=== PATIENT | male | born 1970 | race Caucasian/White ===

== ENCOUNTER 2020-03-17 20:00 | Emergency (ER) | payer OTHER, SELFPAY ==
--- NOTE | ~2020-03-17 | CT_ITS ---
EXAMINATION: CT abdomen pelvis w con DATE: 03/18/2020 01:11 INDICATION: Left upper quadrant pain radiating to the left flank. TECHNIQUE: Computed tomography (CT) of the abdomen and pelvis was performed with 100 cc Omnipaque 350 intravenous contrast. The dose-length product was 958.78 mGy-cm. Automated exposure control and iter ative reconstruction technique were employed. COMPARISON: CT dated 10/28/2013. FINDINGS: Heart size normal. No significant pleural or pericardial effusion. Bibasilar dependent atel ectasis. Nonobstructing bilateral renal stones. No ureteral stones or significant hydronephrosis. No perinephric edema. Fatty infiltration of the liver. The spleen, pancreas, adrenal glands are unremarkable. Gallbladder i s contracted. Nonobstructive bowel gas pattern. Normal appendix. No significant vascular abnormality. No lymphadenopathy. No acute osseous abnormality. IMPRESSION: 1. Nonobstructing bilateral nephrolithiasis. Reviewed, dictated and finalized at location B.
[2020-03-17 20:13] VITALS: BP 126/87; PULSE 102; RESP 17; TEMP 36.4; O2SAT 96
--- NOTE | 2020-03-17 20:20 | ECG_ITS ---
Measurements Intervals [place] Rate: 95 P: 52 RI: 170 QRS: 3 QRSD: 109 T: 31 QT: 336 QTc: 424 Interpretive Statements SINUS RHYTHM DELAYED PRECORDIAL R/S TRANSITION BASELINE ARTIFACT- I, III, AVR, AVF BORDERLINE ECG Electronically Signed On 03-18-2020 6:59:31 CDT by Bill Foote D.O.
[2020-03-17 20:27] LABS: Basophils Absolute Auto 0.1 K/mm3 (0.0-0.1); Basophils Percent Auto 0.8 % (0.2-1.2); Eosinophils Absolute Auto 0.3 K/mm3 (0-0.3); Eosinophils Percent Auto 4.6 % (0-4.4); Hemoglobin 16.3 g/dL (14.0-18.0); Immature Granulocyte Absolute 0.02 K/mm3 (0.00-0.031); Immature Granulocyte Percent A 0.3 % (0-0.5); Lymphocytes Absolute Auto 2.22 K/mm3 (0.9-3.2); Mean Corpuscular HGB Conc 35.4 g/dl (32-36); Mean Corpuscular Volume 84.6 fl (80-100); Mean Platelet Volume 9.3 fl (7.4-10.4); Monocytes Absolute Auto 0.5 K/mm3 (0.1-0.6); Monocytes Percent Auto 6.4 % (2.6-8.5); Neutrophils Absolute Auto 4.1 K/mm3 (1.3-6.7); Neutrophils Percent Auto 56.9 % (45.5-73.1); Platelet Count Result 258 k/mm3 (150-375); Red Blood Count 5.44 M/mm3 (4.6-6.20); Red Cell Distribution Width 12.2 % (11.5-14.5); White Blood Count 7.2 K/mm3 (4.5-10.0)
[2020-03-17 20:40] LABS: Alanine Aminotransferase 67 U/L (4-50); Albumin Level 4.7 g/dL (3.5-5.1); Alkaline Phosphatase 58 U/L (38-126); Anion Gap 9 mmol/L (8-16); Aspartate Amino Transferase 37 U/L (17-59); Blood Urea Nitrogen 11 mg/dL (9-20); Calcium 9.5 mg/dL (8.4-10.2); Carbon Dioxide 28 mmol/L (22-30); Chloride 100 mmol/L (98-107); Estimated CRCL calculation 79 ml/min; Estimated Glomerular Filt Rate > 60; Glucose 105 mg/dL (75-110); Lipase 295 U/L (23-300); Potassium 3.9 mmol/L (3.4-5.0); Sodium 137 mmol/L (137-145)
[2020-03-17 20:51] LABS: Troponin I < 0.012 ng/mL (0.000-0.034)
[2020-03-17 22:04] LABS: Add Urine Microscopic? YES; Appearance Urine Clear (Clear); Bilirubin Urine Negative (Negative); Blood Urine Negative (Negative); Color Urine Yellow (Yellow); Glucose Urine UA 3+ mg/dL (Negative); Ketones Urine Negative (Negative); Leukocyte Esterase Ur Negative LEU/UL (Negative); Mucus Urine Rare /lpf; Nitrate Urine Negative (Negative); Protein Urine Negative (Negative); RBC Urine 0-2 /hpf (0-2); Specific Grav Ur 1.026 (1.001-1.035); WBC Urine 0-3 /hpf
--- NOTE | 2020-03-17 23:21 | ED.ABDPAIN ---
HPI - Abdominal Pain General Chief Complaint: Abdominal Pain Stated Complaint: L flank pain Time Seen by Provider: 03/17/20 23:09 History of Present Illness HPI narrative: LUQ pain for the past few hours. Moderate intensity. No radiation. Associated with nausea. He reports having abdominal issues recently. He also reports mild fatigue. He had routine labs done showing elevated liver enzymes and was supposed to have an ultrasound soon. Related Data Allergies Allergy/AdvReac Type Severity Reaction Status Date / Time No Known Allergies Allergy Unknown Verified 02/20/20 12:37 Review of Systems Review of Systems: All systems reviewed & are unremarkable except as noted in HPI and below Constitutional: Constitutional: Denies fever(s) ENT: Denies sore throat Cardiovascular: Cardiovascular: Denies chest pain Respiratory: Respiratory: Denies dyspnea Gastrointestinal: Gastrointestinal: Reports abdominal pain, Denies constipation, Denies diarrhea and Reports nausea Genitourinary: Genitourinary: Denies hematuria, Denies dysuria and Denies urinary frequency Musculoskeletal: Musculoskeletal: Denies back pain Neurologic: Denies weakness PMFSH Family History Family History Father Carcinoma of colon Grandparent Carcinoma of colon Family history of malignant neoplasm of skin Diabetes mellitus Other Family history of cardiovascular disease Family history of heart disease in male family member before age 55 Social History Social History Smoking status: Former smoker Second hand tobacco smoke exposure: No Alcohol intake: current Gender identity (if verbalized by the patient): Male Exam Const: General: healthy appearing, no acute distress and alert Nutritional Appearance: well nourished Orientation/consciousness: patient oriented x3 HENMT: Head: normal to inspection Neck: Neck: normal visual inspection and no lymphadenopathy Chest: Chest palpation & inspection: no tenderness Resp: Effort & Inspection: normal respiratory effort Auscultation: clear to auscultation bilaterally, no rales, no rhonchi and no wheezes Cardio: Jugular venous distension: no JVD Rate: regular rate Rhythm: regular rhythm Heart sounds: no murmurs GI: Inspection: non-distended GI Palp: Yes Soft to palpation, Yes Tenderness to palpation present (GI) (LUQ), No Guarding due to palpation present (GI) and No Rebound tenderness present Auscultation: normal bowel sounds Skin: General skin exam: normal color Neuro: General: patient oriented x3 and moves all extremities Speech: normal speech Extrem: General: no edema Psych: Appearance: well kempt Affect: normal affect Course Vital Signs Vital signs: Vital Signs Temperature 36.4 C L 03/17/20 20:13 Pulse Rate 102 H 03/17/20 20:13 Respiratory Rate 17 03/17/20 20:13 Blood Pressure 126/87 03/17/20 20:13 Pulse Oximetry 96 03/17/20 20:13 Temperature 36.9 C 03/18/20 03:17 Pulse Rate 71 03/18/20 03:17 Respiratory Rate 16 03/18/20 03:17 Blood Pressure 128/73 03/18/20 03:17 Pulse Oximetry 99 03/18/20 03:17 MDM - Abdominal Pain MDM Narrative Medical decision making narrative: Given h/o of fatigue and elevated liver enzymes mono w/ enlarged spleen was high on my differential. Stokes screen negative. Spleen normal. CT shows signs of UTI or possible recently passed stone. UA does not indicate infection. Not a typical presentation for idney stone, but possible. Differential Diagnosis Differential diagnosis: Likely constipation, small bowel obstruction and other Lab Data Result diagrams: 03/17/20 20:22 03/17/20 20:22 Labs: Lab Results 03/17/20 03/17/20 03/17/20 Range/Units 20:20 20:22 20:22 WBC 7.2 (4.5-10.0) K/mm3 RBC 5.44 (4.6-6.20) M/mm3 Hgb 16.3 (14.0-18.0) g/dL Hct 46.0 (42.0
[2020-03-18 00:03] VITALS: BP 121/73; PULSE 68; RESP 18; O2SAT 99
[2020-03-18 00:24] LABS: Monoscreen Negative (Negative); Negative Monotest Control Negative (Negative); Positive Monotest Control Positive (Positive)
[2020-03-18 02:10] VITALS: BP 121/78; PULSE 74; RESP 16; O2SAT 99
[2020-03-18 03:17] VITALS: BP 128/73; PULSE 71; RESP 16; TEMP 36.9; O2SAT 99
== END 2020-03-18 03:17 | disposition home or self-care (01) ==
PROVIDERS: Emergency Provider Emergency Medicine; PCP Family Medicine
DX: R10.12 Left upper quadrant pain (principal); Z87.891 Personal history of nicotine dependence; R94.31 Abnormal electrocardiogram [ECG] [EKG]; N20.0 Calculus of kidney
CPT/HCPCS: 36415; 74177; 80053; 81001; 83690; 84484; 85025; 86308; 93005; 99284; Q9967

== ENCOUNTER 2020-03-19 09:21 | Outpatient (CLI) | payer OTHER, SELFPAY ==
--- NOTE | ~2020-03-19 | US_ITS ---
US abdomen complete EXAMINATION: US Abdomen Complete INDICATION: Abdominal pain. Abnormal liver function tests. PROCEDURE: Realtime High Resolution abdomen ultrasound. COMPARISON: No prior studies for comparison FINDINGS: Gallbladder within normal limits. No gallstones, pericholecystic fluid, gallbladder wall t hickening or biliary dilatation. Common bile duct measures 3 mm. Liver echotexture within normal limits without focal mass. Pancreas within normal limits. Pancreati c tail is obscured by bowel gas. Spleen is enlarged measuring 14 cm. Renal echotexture is within nor mal limits bilaterally without hydronephrosis, contour deforming mass or renal stone. Right kidney me asures 10.1 cm. Left kidney measures 12.2 cm. Visualized aspects of the aorta and IVC are within normal limits. Portal vein is patent. No sonograph ic Gabriel's sign indicated by the technologist. IMPRESSION: 1: Splenomegaly. Reviewed, dictated and finalized at location B. IMPRESSION: 1: Splenomegaly.
== END 2020-03-19 09:22 | disposition home or self-care (01) ==
PROVIDERS: PCP Family Medicine; Visit Provider Physician Assistant Medical
DX: R79.89 Other specified abnormal findings of blood chemistry (principal); R16.1 Splenomegaly, not elsewhere classified
CPT/HCPCS: 76700

== ENCOUNTER 2020-04-18 07:29 | Outpatient (CLI) | payer OTHER, SELFPAY ==
--- NOTE | ~2020-04-18 | NM_ITS ---
EXAMINATION: NM hepatobiliary w pharm DATE: 04/18/2020 09:35 INDICATION: Right upper quadrant abdominal pain COMPARISON: None. TECHNIQUE: 5 mCi Tc-99m mebrofenin (Choletec) was administered intravenously. Scintigraphic images o f the abdomen were obtained for one hour. 2 mcg sincalide (Kinevac) was administered by slow intraven ous infusion, and imaging was continued for 30 minutes. Gallbladder ejection fraction was calculated by the technologist. FINDINGS: There is normal clearance of radiotracer from the blood pool. There is homogeneous tracer uptake by t he liver. Activity progresses to the gallbladder and bowel. The gallbladder ejection fraction (GBEF) is 32% (normal 10-90%, but most patient with gallbladder dysfunction have GBEF < 35% which does over lap with the normal range). IMPRESSION: 1. Gallbladder ejection fraction is at the lower limits of normal. This could be normal but is also within the range of overlap with gallbladder dysfunction or chronic cholecystitis in the appropriate clinical setting. Reviewed, dictated and finalized at location B.
== END 2020-04-18 07:30 | disposition home or self-care (01) ==
PROVIDERS: PCP Family Medicine; Visit Provider Family Medicine
DX: R10.11 Right upper quadrant pain (principal)
CPT/HCPCS: 78227; A9537; J2805

== ENCOUNTER 2020-05-03 11:40 | Outpatient (CLI) | payer OTHER, SELFPAY ==
[2020-05-07 07:39] LABS: H pylori Ag Stool Not Detected (Not Detected)
== END 2020-05-03 11:41 | disposition home or self-care (01) ==
LOC: ANHLAB 11:42
PROVIDERS: PCP Family Medicine; Visit Provider Surgery
DX: R10.11 Right upper quadrant pain (principal)
CPT/HCPCS: 87338

== ENCOUNTER 2020-05-21 08:54 | Outpatient (CLI) | payer OTHER, SELFPAY ==
[2020-05-21 10:02] LABS: Alanine Aminotransferase 39 U/L (4-50); Albumin Level 4.3 g/dL (3.5-5.1); Alkaline Phosphatase 66 U/L (38-126); Amylase 74 U/L (30-110); Anion Gap 9 mmol/L (8-16); Aspartate Amino Transferase 26 U/L (17-59); Bilirubin,Total 0.7 mg/dL (0.2-1.3); Blood Urea Nitrogen 10 mg/dL (9-20); Calcium 9.2 mg/dL (8.4-10.2); Carbon Dioxide 28 mmol/L (22-30); Chloride 104 mmol/L (98-107); Estimated Glomerular Filt Rate > 60; Glucose 172 mg/dL (75-110); Lipase 214 U/L (23-300); Potassium 3.9 mmol/L (3.4-5.0); Sodium 141 mmol/L (137-145)
== END 2020-05-21 08:55 | disposition home or self-care (01) ==
LOC: ANHSURGERY 08:57
PROVIDERS: PCP Family Medicine; Visit Provider Surgery
DX: Z01.812 Encounter for preprocedural laboratory examination (principal); R94.8 Abnormal results of function studies of other organs and systems; R10.11 Right upper quadrant pain
CPT/HCPCS: 36415; 80053; 82150; 82248; 83690

== ENCOUNTER 2020-05-30 01:32 | Outpatient (CLI) | payer OTHER, SELFPAY ==
[2020-05-30 21:25] LABS: SARS-CoV-2 RNA PCR Negative
== END 2020-05-30 01:33 | disposition home or self-care (01) ==
LOC: ANHCOVIDDT 01:33
PROVIDERS: PCP Family Medicine; Visit Provider Surgery
DX: Z01.812 Encounter for preprocedural laboratory examination (principal); Z20.828 Contact with and (suspected) exposure to other viral communicable diseases
CPT/HCPCS: 87635; C9803; U0003

== ENCOUNTER 2020-06-02 01:01 | Day surgery (SDC) | payer OTHER, SELFPAY ==
[2020-05-20 10:08] VITALS: BMI 28.7
[2020-06-02] VITALS (8 sets, daily range): BP systolic 113–132; BP diastolic 70–93; PULSE 62–98; RESP 10–20; TEMP 36.5–36.6; O2SAT 95–99; BMI 28.7
[2020-06-02] MEDS: LACTATED RINGERS 1,000 ML 30 ML IV CONT ×2 (10:54→14:06)
[2020-06-02] MEDS: ACETAMINOPHEN 500 MG TABLET 1000 MG PO (10:55)
[2020-06-02] MEDS: KETOROLAC 15 MG/ML VIAL (*BKC) IV PUSH (10:55)
[2020-06-02 11:07] LABS: Glucose Point of Care 116 (65-105)
--- NOTE | 2020-06-02 11:11 | WPDANESEPPF ---
Anes - Initial Pre Proc Eval Procedure: Operation Date: 06/02/20 12:30 Proposed Procedures p Laparoscopic Cholecystectomy, Possible Open - Lucas Dixon MD Date/Time: 06/02/20 11:11 Surgeon: Lucas Dixon MD Pre Op Diagnosis: Abnormal HIDA Scan Patient Data Age: 50 Gender: M Height: 6 ft Weight: 96 kg Last Vital Signs Temp 36.6 C 06/02/20 10:59 Pulse 71 06/02/20 10:59 Resp 20 06/02/20 10:59 BP 118/82 06/02/20 10:59 Pulse Ox 98 06/02/20 10:59 Allergies Allergy/AdvReac Type Severity Reaction Status Date / Time No Known Allergies Allergy Unknown Verified 06/02/20 10:29 Home Medications Medication Instructions Recorded Confirmed Type rosuvastatin 20 mg tablet 20 mg PO DAILY #90 tablet 02/26/20 06/02/20 Rx blood sugar diagnostic #100 each 03/03/20 04/30/20 Rx blood-glucose meter #1 each 03/03/20 04/30/20 Rx lancets #100 each 03/03/20 04/30/20 Rx multivitamin 1 tablet PO DAILY 04/30/20 06/02/20 History canagliflozin-metformin [Invokamet 1 tablet PO QAM 05/20/20 06/02/20 History XR] duloxetine [Cymbalta] 60 mg PO QAM 05/20/20 06/02/20 History omeprazole 40 mg PO QAM 05/20/20 06/02/20 History trazodone 50 mg PO HS 05/20/20 06/02/20 History Laboratory Tests 06/02/20 11:04 POC Capillary Glucose 116 mg/dl H mg/dl (65-105) Patient hx anesthesia problems: none Family hx anesthesia problems: none PMFSH Past Medical History Medical History Bilateral kidney stones BMI 28.0-28.9,adult Hyperlipidemia Type 2 diabetes mellitus with hyperglycemia, without long-term current use of insulin Surgical History Surgical History History of colonoscopy 2017 Family History Family History Father Carcinoma of colon Grandparent Carcinoma of colon Family history of malignant neoplasm of skin Diabetes mellitus Other Family history of cardiovascular disease Family history of heart disease in male family member before age 55 Social History Social History Smoking packs per day: 2 Smoking cigarettes per day: 40.0 Years smoked: 20 Smoking pack-years: 40.00 Smoking status: Former smoker Second hand tobacco smoke exposure: No Smoking end date: 01/01/05 Alcohol intake: current Alcohol use details: RARELY DRINKS Substance use: never Living arrangements: with family 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 Questions were solicited and answers provided to the satisfaction of the patient/family/POA.
--- NOTE | 2020-06-02 11:13 | PM.HPGS ---
History of Present Illness History of Present Illness Consent: Risks, benefits, and alternatives of a laparoscopic cholecystectomy possible intraoperative cholangiogram, possible open so cholecystectomy have been discussed and questions answered. Patient agrees to proceed with procedure. Chief complaint: Abnormal HIDA Scan Narrative: Derek Mathew is a 50 year old male who presented with with RUQ abdominal pain at the request of Dr. Rodriguez. He has associated nausea. He states the pain is worse after eating. He has a lack of appetite and has lost about 30lbs in the last 6 weeks. He had recent [place] virus and spleen was slightly enlarged on U/S done on 03/19/20 at . Gallbladder was WNL on U/S. He had a CT scan of abd/pelvis at on 03/17/20 which showed kidney stones and fatty liver. HIDA scan was done at on 04/18/20 and showed a GBEF of 32%. He states he became nauseated after the second injection during HIDA scan. He has family history of colon cancer. His dad at 55 years of age due to colon cancer. Grandfather also from it. He has had 3 colonoscopies and the last was normal with no polyps. Review of Systems Constitutional: Constitutional: Reports no additional constitutional complaints, Reports fatigue and Denies malaise Eyes: Eyes: Denies change in vision and Denies loss of vision ENT: Reports Normal hearing present, Denies change in voice, Denies dizziness, Denies hoarseness and Denies sore throat Cardiovascular: Cardiovascular: Denies chest pain, Denies leg edema and Denies dyspnea Respiratory: Respiratory: Denies cough, Denies dyspnea and Denies wheezing Gastrointestinal: Gastrointestinal: Denies hematochezia, Denies change in bowel habits and Denies heartburn Comments: Intermittent abdominal pain as noted above in HPI. Genitourinary: Genitourinary: Denies urinary frequency and Denies urinary incontinence Neurologic: Reports Normal hearing present, Denies confusion, Denies dizziness, Denies loss of vision, Denies memory loss and Denies seizure-like activity Psychiatric: Psychiatric: Denies confusion, Denies depression and Denies memory loss Endocrine: Endocrine: Denies cold intolerance and Reports fatigue Hematologic/Lymphatic: Hematologic/Lymphatic: Denies easy bleeding and Denies easy bruising Allergic/Immunologic: Allergic/Immunologic: Denies wheezing PMFSH Past Medical History Medical History (Updated 06/02/20 @ 11:41 by Lucas Dixon MD) Bilateral kidney stones Biliary dyskinesia (~03/2020) BMI 28.0-28.9,adult Hyperlipidemia Type 2 diabetes mellitus with hyperglycemia, without long-term current use of insulin Surgical History Surgical History History of colonoscopy 2016 Family History Family History Father Carcinoma of colon Grandparent Carcinoma of colon Family history of malignant neoplasm of skin Diabetes mellitus Other Family history of cardiovascular disease Family history of heart disease in male family member before age 55 Social History Social History Smoking packs per day: 2 Smoking cigarettes per day: 40.0 Years smoked: 20 Smoking pack-years: 40.00 Smoking status: Former smoker Second hand tobacco smoke exposure: No Smoking end date: 01/01/05 Alcohol intake: current Alcohol use details: RARELY DRINKS Substance use: never Living arrangements: with family 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 Gender identity (if verbalized by the patient): Male Spiritual care concerns: No Meds Home Medications and Allergies Home Medications Medication Instructions Recorded Confirmed Type rosuvastatin 20 mg tablet 20 mg PO DAILY #90 tablet 02/26/20 06/02/20 Rx blood sugar diagnostic #100 each 03/03/20 04/30/20 Rx blood-glucose meter #1
--- NOTE | 2020-06-02 11:44 | WPDHPUPDATE1 ---
History and Physical Update Update Date/Time: 06/02/20 11:44 History and Physical has been reviewed, including an updated exam of the patient. There are NO changes in the patient's condition. Risks, benefits, and alternatives have been discussed and questions answered. Patient agrees to proceed with procedure.
[2020-06-02] MEDS: ceFAZolin 2 GM/D5W 50 ML 2 GM/50 ML BAG IVPB (12:40)
[2020-06-02 14:13] LABS: Glucose Point of Care 129 (65-105)
--- NOTE | 2020-06-02 14:13 | P.OP_ITS ---
Procedure Note - Detailed Date of procedure: 06/02/20 Pre-op diagnosis: Abnormal HIDA Scan biliary dyskinesia Procedure performed: Laparoscopic Cholecystectomy Description of procedure: Patient was seen preoperatively in the holding area and risks, benefits and alternatives confirmed. Patient was taken to the operating room and general anesthesia was induced. A time out was then preformed with the surgery team confirming patient and site of surgery. The abdomen was prepped and draped in the usual sterile fashion. Incision was made at the umbilicus with an 15 blade knife. The patient and I had identified a brown skin lesion within the umbilicus. This was elliptically excised as we made this incision. Specimen of skin was sent for pathologic evaluation. I then dissected down to the fascia finding a very small umbilical hernia with a little bit of omentum in it and some small amount of omentum was excised and not sent for pathology. I then placed 2 stay sutures of O- Vicryl on either side of the mid-line fascia beneath the umbilicus and was then able to slide in the Byrne cannula through the fascial defect into the peritoneum. First under low flow and then under high flow the abdomen was insufflated with carbon dioxide never exceeding a pressure of 14. Three 5 mm trocars were then introduced under direct vision. The following trocars were introduced under direct vision: a 5 mm in the epigastrium and two 5 mm trocars along the right costal margin laterally in the subcostal area. There were no significant adhesions to the gallbladder to the underside of the gallbladder. I then carefully used the L-shaped cautery and the [place] dissector to dissect out the triangle of [place]. I then was able to dissect out both the cystic duct and cystic artery and identify a window of safety. The gall bladder was grasped and the cystic duct and artery were dissected free and clipped with an 5 mm endo- clip oil well services dispatcher. The cystic duct and artery were clipped with use of 2 clips on the patient's side 1 on the gallbladder side utilizing a 5 mm endoclip-oil well services dispatcher. The cystic duct was then transected. The cystic artery was also transected at this point. The gall bladder was removed using electrocautery and then removed from the abdomen using a large 10 mm grasper via the umbilical incision. The trocars were removed visualizing hemostasis and the remaining gas evacuated. The large trocar site at the umbilicus was closed with use of the 2 stay sutures of 0 Vicryl mentioned above and also a figure of 8 O-Vicryl suture. The 2 stay sutures mentioned above on either side of the fascia were also tied together to help approximate this midline fascia. Further local anesthetic was placed into each incision for postop pain control. The skin incisions were closed with subcuticular suture of 4-0 Monocryl. Surgical glue then was applied to all the incisions. Patient tolerated the procedure well was taken to the recovery room in good condition. Anesthesia: GETA Surgeon: Lucas Dixon MD Wet Milling Wheel Operator: Jone VERONICA, OR first officer and flight instructor Estimated blood loss (mL): 15 Drains: No Packing: No Pathology: yes (Gallbladder 2. Small ellipse of skin from at the umbilicus containing a suspect nevus.) Complications: No immediate complications Condition: stable Disposition: PACU Findings: Fairly normal appearing gallbladder without obvious acute inflammation. No palpable stones upon removal.
[2020-06-02] MEDS: oxyCODONE HCL (*CRX) 5 MG TAB IR PO (15:29)
== END 2020-06-02 15:55 | disposition home or self-care (01) ==
PROVIDERS: PCP Family Medicine; Visit Provider Surgery
PROC: 0FT44ZZ Resection of Gallbladder, Percutaneous Endoscopic Approach (ICD-10-PCS; CPT 47562; principal; 2020-06-02 12:30)
DX: K81.1 Chronic cholecystitis (principal); L81.4 Other melanin hyperpigmentation; K42.9 Umbilical hernia without obstruction or gangrene; E11.9 Type 2 diabetes mellitus without complications; E78.5 Hyperlipidemia, unspecified; Z79.84 Long term (current) use of oral hypoglycemic drugs; Z87.891 Personal history of nicotine dependence
CPT/HCPCS: 47562; 36415; 80053; 82150; 82248; 83690; 87635; 88304; 88305; A9270; C9803; J0690; J1100; J1885; J2250; J2405; J2704; J2710; J3010; J7120; U0003

== ENCOUNTER 2020-07-25 10:01 | Outpatient (NON) | payer BC, SELFPAY ==
[2020-07-25 14:24] LABS: Influenza Control Positive
[2020-07-25 22:25] LABS: SARS-CoV-2 RNA PCR Positive
== END 2020-07-25 10:02 ==
PROVIDERS: Family Provider Family Medicine; PCP Family Medicine; Visit Provider Nurse Practitioner Family
DX: U07.1 COVID-19 (principal); R05 Cough; R52 Pain, unspecified
CPT/HCPCS: 87804; C9803; U0003; U0005

== ENCOUNTER 2020-08-02 10:27 | Emergency (ER) | payer BC, SELFPAY ==
[2020-08-02] VITALS (16 sets, daily range): BP systolic 114–129; BP diastolic 78–82; PULSE 91–97; RESP 19–26; TEMP 38; O2SAT 89–97
--- NOTE | ~2020-08-02 | XR_ITS ---
EXAMINATION: XR chest 1V portable DATE: 08/02/2020 11:17 INDICATION: COVID positive. Cough and shortness of breath. TECHNIQUE: frontal view of the chest was obtained. COMPARISON: Chest radiograph dated 10/14/2014 FINDINGS: There are patchy airspace opacities in the bilateral lower lung zones. No pulmonary edema, pleural ef fusion or pneumothorax. The cardiomediastinal silhouette is normal. Visualized bones and soft tissues are unremarkable. IMPRESSION: 1. Patchy airspace opacities in the bilateral lower lung zones which could represent pneumonia or ate lectasis. Reviewed, dictated and finalized at location A. OR MATERIALS SCIENTIST IMPRESSION: 1. Patchy airspace opacities in the bilateral lower lung zones which could repr esent pneumonia or atelectasis.
--- NOTE | 2020-08-02 10:47 | ECG_ITS ---
Measurements Intervals [place] Rate: 96 P: 25 MA: 174 QRS: -9 QRSD: 104 T: 31 QT: 351 QTc: 443 Interpretive Statements SINUS RHYTHM DELAYED PRECORDIAL R/S TRANSITION BORDERLINE ECG Electronically Signed On 08-02-2020 16:02:58 ENVIRONMENTAL HEALTH SAFETY ENGINEER by Bill Foote D.O.
--- NOTE | 2020-08-02 11:29 | ED.GENADULT ---
HPI - General Adult General Chief complaint: Upper Respiratory Infection <Leonidas Awan PA-C - Last Filed: 08/02/20 12:35> Stated complaint: SOB, COVID Positive <MILKA Kang Last Filed: 08/02/20 12:35> Time Seen by Provider: 08/02/20 10:36 <MILKA Kang Last Filed: 08/02/20 12:35> Source: patient <MILKA Kang Last Filed: 08/02/20 12:35> Mode of arrival: ambulatory <MILKA Kang Last Filed: 08/02/20 12:35> Limitations: no limitations <MILKA Kang Last Filed: 08/02/20 12:35> History of Present Illness HPI narrative: Patient presents with chief complaint of concerns due to Covid symptoms. Patient tested positive for Covid or 07-25-20 after beginning to have symptoms on 07-24-20. Patient states that he has been having fatigue, headaches, cough, shortness of breath that has been constant since being ill. Patient denies any pain with inspiration or chest pain. Patient states that he became concerned after documenting a fever of 100.6 ?F. Patient took Tylenol at 9 AM. Patient states that he thought he needed to be evaluated to make sure that his symptoms are normal. Patient is a diabetic and states that his blood sugars have been well controlled under 200. <MILKA Kang Last Filed: 08/02/20 12:35> Related Data Home medications: Home Medications Medication Instructions Recorded Confirmed multivitamin 1 tablet PO DAILY 04/30/20 06/16/20 omeprazole 40 mg PO QAM 05/20/20 06/16/20 <MILKA Kang Last Filed: 08/02/20 12:35> Allergies/adverse reactions: Allergies Allergy/AdvReac Type Severity Reaction Status Date / Time No Known Allergies Allergy Unknown Verified 08/02/20 10:53 <MILKA Knag Last Filed: 08/02/20 12:35> Review of Systems Review of Systems: Narrative: CONSTITUTIONAL: Reports fever and fatigue denies chills, or sweats. EYES: Denies visual changes, redness, or discharge. ENT: Denies rhinorrhea, congestion, sore throat, or otalgia. CARDIOVASCULAR: Denies chest pain, palpitations, or edema. RESPIRATORY: Reports cough and mild dyspnea. Denies pain with inspiration GASTROINTESTINAL: Denies abdominal pain, nausea, vomiting, or diarrhea. GENITOURINARY: Denies dysuria or hematuria. SKIN: Denies rash or itching. MUSCULOSKELETAL: Denies back pain, joint pain, or myalgia. NEUROLOGIC: Denies headache, numbness, dizziness, or weakness. PSYCHIATRIC: Denies anxiety or depression. <Leonidas Awan PA-C - Last Filed: 08/02/20 12:35> [facility] Past Medical History Medical History: Medical History Bilateral kidney stones Biliary dyskinesia (~03/2020) BMI 28.0-28.9,adult Hyperlipidemia Type 2 diabetes mellitus with hyperglycemia, without long-term current use of insulin <Leonidas Awan PA-C - Last Filed: 08/02/20 12:35> Surgical History Surgical History: Surgical History History of colonoscopy 2017 <Leonidas Awan PA-C - Last Filed: 08/02/20 12:35> Family History Family History: Family History Father Carcinoma of colon Grandparent Carcinoma of colon Family history of malignant neoplasm of skin Diabetes mellitus Other Family history of cardiovascular disease Family history of heart disease in male family member before age 55 <Leonidas Awan PA-C - Last Filed: 08/02/20 12:35> Social History Social History: Social History Smoking packs per day: 2 Smoking cigarettes per day: 40.0 Years smoked: 20 Smoking pack-years: 40.00 Smoking status: Former smoker Second hand tobacco smoke exposure: No Smoking end date: 01/01/05 Alcohol intake: current Substance use: never Additional occupation/education comments: [employer]ill[employer]
== END 2020-08-02 12:42 | disposition home or self-care (01) ==
PROVIDERS: Emergency Provider General Practice; PCP Family Medicine
DX: U07.1 COVID-19 (principal); Z87.442 Personal history of urinary calculi; E78.5 Hyperlipidemia, unspecified; E11.9 Type 2 diabetes mellitus without complications; Z87.891 Personal history of nicotine dependence; R91.8 Other nonspecific abnormal finding of lung field
CPT/HCPCS: 71045; 93005; 99283

== ENCOUNTER → 2022-03-10 08:42 | Outpatient (CLI) | payer BC, SELFPAY ==
--- NOTE | ~2022-03-10 | XR_ITS ---
EXAM: XR_CERV2-3V_CR DATE: 03/10/2022 09:06 HISTORY: NO INJURY PAIN IN NECK GOING DOWN RT ARM FOR 2 WEEKS . COMPARISON: None available. FINDINGS: Craniocervical association and atlantoaxial joint are normal. No prevertebral soft tissue swelling. Vertebral bodies are aligned. Cervical spine straightening as can occur with positioning or spasm. Mild disc space narrowing at C5-6, remaining body heights and disc spaces are maintained. Mod erate osteophytosis at C5-6. Normal facets and posterior elements. IMPRESSION: Mild-moderate degenerative disc disease at C5-6. Reviewed, dictated and finalized at location K.
--- NOTE | ~2022-03-10 | XR_ITS ---
EXAM: XR shoulder RT min 2V DATE: 03/10/2022 09:06 HISTORY: M25.519 - Pain in unspecified shoulder . COMPARISON: None available. FINDINGS: Normal mineralization. No fracture or dislocation. No lytic or blastic lesion. Joint space s are maintained. No erosion or periosteal change. Soft tissues within normal limits. IMPRESSION: Normal right shoulder radiograph findings. Reviewed, dictated and finalized at location K.
== END ==
PROVIDERS: PCP Family Medicine; Visit Provider Nurse Practitioner Family
DX: M47.812 Spondylosis without myelopathy or radiculopathy, cervical region (principal); M25.511 Pain in right shoulder
CPT/HCPCS: 72040; 73030

== ENCOUNTER 2022-03-30 00:44 | Day surgery (SDC) | payer BC, SELFPAY ==
[2022-03-17 12:31] VITALS: BMI 29.9
[2022-03-30 07:00] VITALS: BP 115/79; PULSE 77; RESP 18; TEMP 36.1; O2SAT 97
[2022-03-30] MEDS: LACTATED RINGERS 1,000 ML 150 ML IV CONT (07:08)
[2022-03-30 07:15] LABS: Glucose Point of Care 126 mg/dl (65-105)
--- NOTE | 2022-03-30 07:28 | PM.HPGS ---
History of Present Illness History of Present Illness Consent: Risks, benefits, and alternatives have been discussed and questions answered. Patient agrees to proceed with procedure. Chief complaint: family hx colon ca Narrative: Derek Mathew is a 52 year old male Presents for screening colonoscopy. Patient's family history is significant that his father and grandfather both had colon cancer. Patient reports that his current weight appetite and bowel movements are normal. Patient denies abdominal pain. He has had no bleeding. He desires neoplasia screening. Previous exam many years ago Revealed a benign hyperplastic colon polyp. Review of Systems Review of Systems: Review of systems noncontributory. [facility] Past Medical History Medical History Bilateral kidney stones Biliary dyskinesia (~03/2020) BMI 28.0-28.9,adult BMI 29.0-29.9,adult Hyperlipidemia Type 2 diabetes mellitus with hyperglycemia, without long-term current use of insulin Surgical History Surgical History History of colonoscopy 2016 Family History Family History Father Carcinoma of colon Grandparent Carcinoma of colon Family history of malignant neoplasm of skin Diabetes mellitus Other Family history of cardiovascular disease Family history of heart disease in male family member before age 55 Social History Social History Smoking packs per day: 2 Smoking cigarettes per day: 40.0 Years smoked: 20 Smoking pack-years: 40.00 Smoking status: Former smoker Tobacco type: cigarettes Second hand tobacco smoke exposure: No Smoking end date: 01/01/05 Alcohol intake: current Alcohol use details: RARELY DRINKS Substance use: never Substance use type: does not use Living arrangements: with family Additional living arrangements comments: wifeand son 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- [employer] Gender identity (if verbalized by the patient): Male Sexual Orientation (if Verbalized by the Patient): Straight or Heterosexual Spiritual care concerns: No Agree to blood products: Yes Meds Home Medications and Allergies Home Medications Medication Instructions Recorded Confirmed Type blood-glucose meter (OneTouch #1 ea 03/03/20 03/10/22 Rx Verio Meter) lancets (Lancets,Thin) #100 ea 03/03/20 03/10/22 Rx multivitamin (Daily Multi-Vitamin 1 tablet PO DAILY 04/30/20 03/17/22 History tablet) duloxetine 60 mg capsule,delayed 60 mg PO DAILY #90 caps 11/03/21 03/17/22 Rx release (Cymbalta) omeprazole 40 mg capsule,delayed 40 mg PO QAM #90 caps 01/30/22 03/17/22 Rx release rosuvastatin 20 mg tablet (Crestor) 20 mg PO DAILY #30 tabs 02/24/22 03/17/22 Rx dapagliflozin 5 mg-metformin ER 2 tablet PO DAILY #180 ea 02/28/22 03/17/22 Rx 1,000 mg tablet,extended release 24hr (Xigduo XR) blood sugar diagnostic (OneTouch #100 ea 03/10/22 03/10/22 Rx Verio test strips) duloxetine 30 mg capsule,delayed 30 mg PO DAILY 03/17/22 03/17/22 History release trazodone 50 mg tablet 50 mg PO HS 03/17/22 03/17/22 History Allergies Allergy/AdvReac Type Severity Reaction Status Date / Time bupropion [From Wellbutrin] AdvReac brain fog, Verified 03/30/22 06:57 achiness Vital Signs Vital Signs - 24 hr 03/30/22 07:00 Temperature 96.9 F L Pulse Rate 77 Respiratory Rate 18 Blood Pressure 115/79 Pulse Oximetry 97 Oxygen Delivery Room Air Exam Narrative: Physical exam reveals patient to be alert. Vital signs stable. HEENT exam is unremarkable. Patient is anicteric. Lungs are clear to auscultation and percussion. Heart is without murmur or extra sounds. Abdominal exam bowel sounds are present soft nontender with no organomegaly. Digital
--- NOTE | 2022-03-30 08:07 | WPDANESEPPF ---
Anes - Initial Pre Proc Eval Procedure: Operation Date: 03/30/22 08:00 Proposed Procedures p Screening Colonoscopy - Jone Lizarraga MD Date/Time: 03/30/22 08:07 Surgeon: Jone Lizarraga MD Pre Op Diagnosis: family hx colon ca Patient Data Age: 52 Gender: M Height: 1.83 m Weight: 97.5 kg Last Vital Signs Temp 96.9 F L 03/30/22 07:00 Pulse 77 03/30/22 07:00 Resp 18 03/30/22 07:00 BP 115/79 03/30/22 07:00 Pulse Ox 97 03/30/22 07:00 O2 Del Method Room Air 03/30/22 07:00 Allergies Allergy/AdvReac Type Severity Reaction Status Date / Time bupropion [From Wellbutrin] AdvReac brain fog, Verified 03/30/22 06:57 achiness Home Medications Medication Instructions Recorded Confirmed Type blood-glucose meter (OneTouch #1 ea 03/03/20 03/10/22 Rx Verio Meter) lancets (Lancets,Thin) #100 ea 03/03/20 03/10/22 Rx multivitamin (Daily Multi-Vitamin 1 tablet PO DAILY 04/30/20 03/17/22 History tablet) duloxetine 60 mg capsule,delayed 60 mg PO DAILY #90 caps 11/03/21 03/17/22 Rx release (Cymbalta) omeprazole 40 mg capsule,delayed 40 mg PO QAM #90 caps 01/30/22 03/17/22 Rx release rosuvastatin 20 mg tablet (Crestor) 20 mg PO DAILY #30 tabs 02/24/22 03/17/22 Rx dapagliflozin 5 mg-metformin ER 2 tablet PO DAILY #180 ea 02/28/22 03/17/22 Rx 1,000 mg tablet,extended release 24hr (Xigduo XR) blood sugar diagnostic (OneTouch #100 ea 03/10/22 03/10/22 Rx Verio test strips) duloxetine 30 mg capsule,delayed 30 mg PO DAILY 03/17/22 03/17/22 History release trazodone 50 mg tablet 50 mg PO HS 03/17/22 03/17/22 History Laboratory Tests 03/30/22 07:10 POC Capillary Glucose 126 mg/dl H mg/dl (65-105) Patient hx anesthesia problems: none Family hx anesthesia problems: none Results Review: All pre-operative results and documents have been reviewed as part of the pre-operative evaluation. [facility], [facility] Past Medical History Medical History Bilateral kidney stones Biliary dyskinesia (~03/2020) BMI 28.0-28.9,adult BMI 29.0-29.9,adult Hyperlipidemia Type 2 diabetes mellitus with hyperglycemia, without long-term current use of insulin Surgical History Surgical History History of colonoscopy 2016 Family History Family History Father Carcinoma of colon Grandparent Carcinoma of colon Family history of malignant neoplasm of skin Diabetes mellitus Other Family history of cardiovascular disease Family history of heart disease in male family member before age 55 Social History Social History Smoking packs per day: 2 Smoking cigarettes per day: 40.0 Years smoked: 20 Smoking pack-years: 40.00 Smoking status: Former smoker Tobacco type: cigarettes Second hand tobacco smoke exposure: No Smoking end date: 01/01/05 Alcohol intake: current Alcohol use details: RARELY DRINKS Substance use: never Substance use type: does not use Living arrangements: with family Additional living arrangements comments: wifeand son 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[employer] Gender identity (if verbalized by the patient): Male Sexual Orientation (if Verbalized by the Patient): Straight or Heterosexual Spiritual care concerns: No Agree to blood products: Yes Anes - Eval Final PreProcedure Day of Procedure 03/30/22 08:07 Patient weight: normal Heart: regular rate and rhythm Lungs: clear to auscultation Airway: Mallampati scale class II Neurological: alert and oriented Last oral intake: >/= 8 hours ASA classification: III Emergent: no Anesthetic plan: proceed Anesthesia type and monitoring: general GIVS and standard monitoring Results Review: All pre-operative results and documents have
[2022-03-30 08:16] VITALS: BP 96/63; PULSE 71; RESP 19; O2SAT 95
[2022-03-30 08:26] VITALS: BP 98/59; PULSE 65; RESP 24; O2SAT 97
[2022-03-30 08:36] VITALS: BP 92/69; PULSE 68; RESP 20; O2SAT 97
== END 2022-03-30 08:45 | disposition home or self-care (01) ==
PROVIDERS: PCP Family Medicine; Visit Provider Internal Medicine Gastroenterology
PROC: 0DJD8ZZ Inspection of Lower Intestinal Tract, Via Natural or Artificial Opening Endoscopic (ICD-10-PCS; CPT 45378; principal; 2022-03-30 08:00)
DX: Z12.11 Encounter for screening for malignant neoplasm of colon (principal); K63.5 Polyp of colon; Z80.0 Family history of malignant neoplasm of digestive organs; K64.8 Other hemorrhoids; E11.65 Type 2 diabetes mellitus with hyperglycemia; E78.5 Hyperlipidemia, unspecified; Z87.891 Personal history of nicotine dependence
CPT/HCPCS: 45385; 82948; 88305; J2704; J7120

== ENCOUNTER 2022-11-16 08:16 | Outpatient (CLI) | payer BC, SELFPAY ==
--- NOTE | 2022-11-16 08:24 | EST_ITS ---
Patient Info Name: Derek Mathew Age: 52 years : 1970 Gender: Male Ht: 72 in Wt: 235 lbs BSA: 2.36 m2 Exam Date: 11/16/2022 8:45 AM Exam Location: [facility] Stress Patient Status: Outpatient Admit Date: 11/16/2022 Staff Ordering Physician: Mikaela Sahu Attending Provider: Mikaela Sahu Exercise Technologist: Dulce Ventura RDCS Exercise Physician: Bill Foote DO Exam Type: CA stress test treadmill Study Info Indications R06.02 - Shortness of breath A treadmill exercise stress test was performed. Summary 1. 1. Negative Reddy exercise stress test for ischemic ST changes by ECG criteria. 2. 2. Reduced functional capacity, achieving 8.9 METs of workload. 3. 3. Appropriate HR response to exercise. 4. 4. Appropriate HR recovery at 1 minute post exercise. 5. 5. No imaging with stress testing. 6. 6. Patient informed of the above results. Protocol: Reddy Stress ECG Details Stage: REST Duration (min): 0 min : 47 sec Speed (mph): 0.0 Grade (%): 0 HR (bpm): 74 SBP (mmHg): 122 DBP (mmHg): 84 METS: --- Stage: REST Duration (min): 18 min : 27 sec Speed (mph): 0.0 Grade (%): 0 HR (bpm): 74 SBP (mmHg): 122 DBP (mmHg): 84 METS: --- Stage: STAGE 1 Duration (min): 1 min : 0 sec Speed (mph): 1.7 Grade (%): 10 HR (bpm): 112 SBP (mmHg): 122 DBP (mmHg): 84 METS: --- Stage: STAGE 1 Duration (min): 2 min : 0 sec Speed (mph): 1.7 Grade (%): 10 HR (bpm): 127 SBP (mmHg): 122 DBP (mmHg): 84 METS: --- Stage: STAGE 1 Duration (min): 3 min : 0 sec Speed (mph): 1.7 Grade (%): 10 HR (bpm): 129 SBP (mmHg): 139 DBP (mmHg): 75 METS: --- Stage: STAGE 2 Duration (min): 1 min : 0 sec Speed (mph): 2.5 Grade (%): 12 HR (bpm): 137 SBP (mmHg): 139 DBP (mmHg): 75 METS: --- Stage: STAGE 2 Duration (min): 2 min : 0 sec Speed (mph): 2.5 Grade (%): 12 HR (bpm): 144 SBP (mmHg): 162 DBP (mmHg): 74 METS: --- Stage: STAGE 2 Duration (min): 3 min : 0 sec Speed (mph): 2.5 Grade (%): 12 HR (bpm): 149 SBP (mmHg): 162 DBP (mmHg): 74 METS: --- Stage: STAGE 3 Duration (min): 1 min : 0 sec Speed (mph): 3.4 Grade (%): 14 HR (bpm): 161 SBP (mmHg): 177 DBP (mmHg): 72 METS: --- Stage: STAGE 3 Duration (min): 1 min : 0 sec Speed (mph): 3.4 Grade (%): 14 HR (bpm): 160 SBP (mmHg): 177 DBP (mmHg): 72 METS: --- Stage: RECOVERY Duration (min): 0 min : 59 sec Speed (mph): 0.0 Grade (%): 0 HR (bpm): 147 SBP (mmHg): 120 DBP (mmHg): 72 METS: --- Stage: RECOVERY Duration (min): 1 min : 59 sec Speed (mph): 0.0 Grade (%): 0 HR (bpm): 129 SBP (mmHg): 120 DBP (mmHg): 72 METS: --- Stage: RECOVERY Duration (min): 2 min : 59 sec Speed (mph): 0.0 Grade (%): 0 HR (bpm): 108 SBP (mmHg): 122 DBP (mmHg): 77 METS: --- Stage: RECOVERY Dura
== END 2022-11-16 08:17 | disposition home or self-care (01) ==
LOC: ANHCARD 08:18
PROVIDERS: PCP Family Medicine; Visit Provider Physician Assistant Medical
DX: R00.0 Tachycardia, unspecified (principal); R06.02 Shortness of breath; R07.89 Other chest pain
CPT/HCPCS: 93017

== ENCOUNTER 2023-02-15 08:42 | Outpatient (CLI) | payer BC, SELFPAY ==
--- NOTE | ~2023-02-15 | US_ITS ---
EXAMINATION: US abdomen complete DATE: 02/15/2023 09:07 INDICATION: Other specified abnormal findings of blood chemistry. Abnormal liver function tests. TECHNIQUE: Multiple grayscale and Doppler ultrasound images of the abdomen were obtained. COMPARISON: CT abdomen and pelvis 03/18/2020 FINDINGS: The visualized portions of the head and body of the pancreas are normal. There is diffuse h epatic steatosis. There is normal flow in main portal vein. The gallbladder is absent. The common spring t is normal and measures 5 mm. The kidneys are normal in size. The spleen is normal in size. Abdomina l aorta is normal in caliber. Inferior vena cava is normal. IMPRESSION: 1. Diffuse hepatic steatosis. Reviewed, dictated and finalized at location A.
== END 2023-02-15 08:43 ==
PROVIDERS: PCP Family Medicine; Visit Provider Physician Assistant Medical
DX: R79.89 Other specified abnormal findings of blood chemistry (principal); K76.0 Fatty (change of) liver, not elsewhere classified
CPT/HCPCS: 76700

== ENCOUNTER 2023-06-06 09:50 | Emergency (ER) | payer BC, SELFPAY ==
[2023-06-06 10:04] VITALS: BP 143/88; PULSE 97; RESP 18; TEMP 36.1; O2SAT 97
--- NOTE | 2023-06-06 10:11 | ED.CHESTPAIN ---
HPI - Chest Pain General Chief Complaint: Chest Pain Stated Complaint: Chest Wall Pain Time Seen by Provider: 06/06/23 10:10 Source: patient Mode of arrival: ambulatory Limitations: no limitations History of Present Illness HPI narrative: Derek is a 53-year-old male patient presenting to the clinic today with complaints of left-sided chest pain x3 days. He reports that his pain is currently a 7 or an 8/10. Pain is worse with movement. Denies any shortness of breath. Pain is radiating into the left arm and going down to the elbow. States he had a stress test back a couple months ago and was normal. Related Data Home Medications Medication Instructions Recorded Confirmed multivitamin (Daily Multi-Vitamin 1 tablet PO DAILY 04/30/20 06/06/23 tablet) Allergies Allergy/AdvReac Type Severity Reaction Status Date / Time bupropion [From Wellbutrin] AdvReac brain fog, Verified 03/01/23 13:46 achiness Review of Systems Review of Systems: Pertinent positives per HPI. Patient denies any fever, chills, rash, headache, visual changes, dizziness, cough, runny nose, sore throat, shortness of breath, palpitations, nausea, vomiting, diarrhea, constipation, abdominal pain, or any urinary issues. [facility] Past Medical History Medical History Bilateral kidney stones Biliary dyskinesia (~03/2020) BMI 28.0-28.9,adult BMI 29.0-29.9,adult Hyperlipidemia Type 2 diabetes mellitus with hyperglycemia, without long-term current use of insulin Surgical History Surgical History History of colonoscopy 2017 Family History Family History Father Carcinoma of colon Grandparent Carcinoma of colon Family history of malignant neoplasm of skin Diabetes mellitus Other Family history of cardiovascular disease Family history of heart disease in male family member before age 55 Social History Social History Smoking packs per day: 2 Smoking cigarettes per day: 40.0 Years smoked: 20 Smoking pack-years: 40.00 Smoking status: Former smoker Tobacco type: cigarettes Second hand tobacco smoke exposure: No Smoking end date: 01/01/05 Alcohol intake: current Alcohol use details: RARELY DRINKS Substance use: never Substance use type: does not use Living arrangements: with family Additional living arrangements comments: wifeand son Occupation/Education: occupation 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 There is no relevant family history pertinent to the patient complaint. Exam Narrative: General: Well-developed, well nourished, in no apparent distress Head: Normocephalic, atraumatic. Cardio: Regular rate and rhythm, s1 and s2 normal, no murmur appreciated. Resp: Clear to auscultation bilaterally, no rhonchi, rales, wheezing or rubs. Extremities: No deformity, no edema, no cyanosis, capillary refill less than 2 seconds, peripheral pulses palpable and strong. Integumentary: [place], warm, and dry, intact without lesion, no rashes. Course Course Emergency Course: Portions of this record may have been created with voice recognition software. Level of Care: Express Care Visit Vital Signs Vital signs: Vital signs reviewed MDM - Chest Pain MDM Narrative Medical decision making narrative: At the time of visit patient is resting comfortably on the exam table. EKG is normal sinus rhythm with a heart rate of 75 beats per
[2023-06-06] MEDS: ASPIRIN 81 MG CHEWABLE TABLET 324 MG PO (10:14)
--- NOTE | 2023-06-06 10:36 | ECG_ITS ---
Measurements Intervals [place] Rate: 76 P: 33 MA: 172 QRS: 26 QRSD: 110 T: 4 QT: 366 QTc: 413 Interpretive Statements SINUS RHYTHM WITHIN NORMAL LIMITS COMPARED TO ECG 06/06/2023 10:04:20 NO SIGNIFICANT DIFFERENCE Electronically Signed On 06-06-2023 15:20:02 BODY AND FRAME TECHNICIAN by Shaun To M.D.
== END 2023-06-06 10:24 | disposition short-term general hospital (02) ==
PROVIDERS: Emergency Provider Nurse Practitioner Family; PCP Family Medicine
DX: R07.9 Chest pain, unspecified (principal); E78.5 Hyperlipidemia, unspecified; E11.9 Type 2 diabetes mellitus without complications; Z79.84 Long term (current) use of oral hypoglycemic drugs; Z87.891 Personal history of nicotine dependence
CPT/HCPCS: 93005; 99213; A9270; G0463

== ENCOUNTER 2023-06-06 10:43 | Emergency (ER) | payer BC, SELFPAY ==
--- NOTE | 2023-06-06 10:52 | ECG_ITS ---
Measurements Intervals [place] Rate: 75 P: 35 IN: 179 QRS: 7 QRSD: 105 T: 14 QT: 373 QTc: 418 Interpretive Statements SINUS RHYTHM NORMAL ELECTROCARDIOGRAM COMPARED TO ECG 08/02/2020 10:38:36 NO SIGNIFICANT CHANGES Electronically Signed On 06-06-2023 15:16:26 BULLDOZER MECHANIC by Shaun To M.D.
[2023-06-06 10:56] VITALS: BP 150/87; PULSE 82; RESP 20; TEMP 36.3; O2SAT 94
[2023-06-06 11:11] LABS: Basophils Absolute Auto 0.1 K/mm3 (0.0-0.1); Basophils Percent Auto 0.9 % (0.2-1.2); Eosinophils Absolute Auto 0.3 K/mm3 (0-0.3); Eosinophils Percent Auto 4.4 % (0-4.4); Hematocrit 50.4 % (42.0-52.0); Hemoglobin 17.6 g/dL (14.0-18.0); Immature Granulocyte Absolute 0.01 K/mm3 (0.00-0.031); Immature Granulocyte Percent A 0.2 % (0-0.5); Lymphocytes Absolute Auto 2.03 K/mm3 (0.9-3.2); Lymphocytes Percent Auto 30.9 % (18.3-44.2); Mean Corpuscular HGB Conc 34.9 g/dl (32-36); Mean Corpuscular Hemoglobin 29.3 pg (26-34); Mean Corpuscular Volume 83.9 fl (80-100); Mean Platelet Volume 9.3 fl (7.4-10.4); Monocytes Absolute Auto 0.5 K/mm3 (0.1-0.6); Neutrophils Absolute Auto 3.7 K/mm3 (1.3-6.7); Neutrophils Percent Auto 56.6 % (45.5-73.1); Platelet Count Result 241 k/mm3 (150-375); Red Blood Count 6.01 M/mm3 (4.6-6.20); Red Cell Distribution Width 11.8 % (11.5-14.5); White Blood Count 6.6 K/mm3 (4.5-10.0)
[2023-06-06 11:22] LABS: Prothrombin Time 13.1 Seconds (11.1-14.7)
[2023-06-06 11:23] LABS: Alanine Aminotransferase 75 U/L (6-50); Albumin Level 4.4 g/dL (3.5-5.1); Alkaline Phosphatase 70 U/L (38-126); Anion Gap 10 mmol/L (8-16); Aspartate Amino Transferase 36 U/L (17-59); Bilirubin,Total 0.8 mg/dL (0.2-1.3); Blood Urea Nitrogen 8 mg/dL (9-20); Calcium 9.1 mg/dL (8.4-10.2); Carbon Dioxide 23 mmol/L (22-30); Chloride 104 mmol/L (98-107); Estimated CRCL calculation 106 ml/min; Estimated Glomerular Filt Rate > 60; Glucose 183 mg/dL (65-110); Lipase 147 U/L (23-300); Partial Thromboplastin Time 27.3 SECONDS (22.3-36.8); Sodium 137 mmol/L (137-145)
[2023-06-06 11:34] LABS: Troponin I < 0.012 ng/mL (0.000-0.034)
--- NOTE | 2023-06-06 14:03 | PC.NURSE ---
Pt not present when name called. Pt A&Ox4. Pt left before seeing provider.
== END 2023-06-06 14:03 | disposition left against medical advice (07) ==
PROVIDERS: Emergency Provider Emergency Medicine; PCP Family Medicine
DX: R07.9 Chest pain, unspecified (principal)
CPT/HCPCS: 36415; 80053; 83690; 84484; 85025; 85610; 85730; 93005; 99199; 99213; A9270; G0463

== ENCOUNTER 2025-02-18 14:51 | Outpatient (CLI) | payer BC, SELFPAY ==
--- NOTE | ~2025-02-18 | XR_ITS ---
XR shoulder LT min 2V 02/18/2025 15:18 INDICATION: Left shoulder pain PROCEDURE: 4 views left shoulder COMPARISON: No prior studies for comparison. FINDINGS: Fracture, dislocation or subluxation is not identified. The soft tissues appear within norm al limits. No foreign bodies are identified. IMPRESSION: 1: NO ACUTE BONE OR JOINT ABNORMALITY IDENTIFIED. Reviewed, dictated and finalized at location A.
--- OUTSIDE RECORDS SUMMARY | 2025-02-18 15:51 | XMS_ITS | Clinical Summary ---
Author Organization [facility] Address [address] [place] [address] Care Team Providers Care Court Attendant Name Role Phone Kvng Rodriguez MD Primary Care Provider [phone] Source Comments [facility],non-owned Affiliates and Associated Physician Practices is amultiple site organization consisting of ambulatory clinics and hospital sitesin [place], [place], [place] and [place]. This disclosure is being madepursuant to the Care Everywhere program and may not contain all information available regarding this patient. Last updated 18.[facility] Number 100 Allergies No known active allergies Medications * Be aware that medications may not be up to date on this document. Alwaysverify current medications with the patient. Xigduo XR 5-1000 MG tablet Take 2 (two) tablets by mouth once daily 04/28/2023 Active DULoxetine (Cymbalta) 30 MG capsule Take 1 (one) capsule by mouth once daily 02/24/2023 Active DULoxetine (Cymbalta) 60 MG capsule Take 1 (one) capsule by mouth once daily 02/17/2023 Active OneTouch Verio test strip TEST BLOOD SUGAR TWICE DAILY FOR DIABETES 10/06/2022 Active omeprazole (PriLOSEC) 40 MG capsule Take 1 (one) capsule by mouth once daily 04/28/2023 Active testosterone cypionate (Depo-Testoster one) 200 MG/ML injection Inject 1 mL into muscle every 14 days 03/02/2023 Active traZODone (Desyrel) 50 MG tablet Take 1 (one) tablet by mouth at bedtime 04/28/2023 Active Active Problems Problem Noted Date Diagnosed Date Steatosis of liver 05/13/2023 Overview (05/18/2023): 05/13/23 Fibroscan CAP 311, LSM 5.4 kPa Family History Medical History Relation Name Comments Cancer - Colon Father Arthritis - Osteo Mother Relation Name Status Comments Father Mother Alive Social History Tobacco Use Types Packs/Day Years Used Date Smoking Tobacco: Former Cigarettes 2 15 1 07/13/1989 - 05/13/2005 Smokeless Tobacco: Never Alcohol Use Standard Drinks/Week Comments Never 0 (1 standard drink = 0.6 oz pur e alcohol) Sex and Gender Information Value Date Recorded Sex Assigned at Not on file Legal Sex Male 6:16 AM DATABASE TESTER Gender Identity Not on file Sexual Orientation Not on file Last Filed Vital Signs Vital Sign Reading Time Taken Comments Blood Pressure 131/89 05/13/2023 2:55 PM DATABASE TESTER Pulse 93 05/13/2023 2:55 PM DATABASE TESTER Temperature 36.3 C (97.3 F) 05/13/2023 2:55 PM DATABASE TESTER Respiratory Rate - - Oxygen Saturation 97% 05/13/2023 2:55 PM DATABASE TESTER Inhaled Oxygen Concentration - - Weight 107.2 kg (236 lb 6.4 oz) 05/13/2023 2:55 PM DATABASE TESTER Height 182.9 cm (6') 05/13/2023 2:55 PM DATABASE TESTER Body Mass Index 32.06 05/13/2023 2:55 PM DATABASE TESTER Plan of Treatment Health Maintenance Due Date Last Done Comments COLOGUARD (AGES 45-75) - COL ON CA SCREENING 1970 COLON MONITORING 1970 COLONOSCOPY - COLON CA SCREENING 1971 CT COLONOGRAPHY - COLON CA SCREENING 1970 Colorectal Cancer Screening 1970 FIT - COLON CA SCREENING 1970 FLEX SIG - COLON CA SCREENING 1970 LIPID TESTING 1970 HIV SCREENING 1986 HEPATITIS C SCREENING 02/07/1989 DTAP/TDAP/TD VACCINES (1 - Tdap) 1990 HEPATITIS B VACCINE (1 of 3 - 19+ 3-dose series) 1990 PNEUMOCOCCAL VACCINE 50+ (1 of 1 - PCV) 2021 ZOSTER VACCINE (1 of 2) 2021 SCREENING FOR DIABETES 05/13/2023 COVID-19 VACCINE ( - 2023-2 5 season) 2024 DEPRESSION SCREENING 07/04/2024 INFLUENZA VACCINE (#1) 2025 HIB VACCINE Aged Out No longer eligi ble based on patient's age to complete this topic HPV VACCINE Aged Out No longer eligi ble based on patient's age to complete this topic MENINGOCOCCAL (Group B) VACC INE SHARED DECISION-MAKING Aged Out No longer eligibl e based on patient's age to complete this topic MENINGOCOCCAL GROUPS A/C/Y/W VACCINE Aged Out No longer eligible b ased on patient's age to complete this topic Goals Goal Patient Goal Type Associated Problems Recent Progress Patient-Stated? Author Medication Management General Asuncion Parrish, RN Note: Expected end date: Ongoing Interventions: Take all medications as prescribed Let your doctor know right away about any changes in your medications Make sure to request a refill of your medication at least one week prior to your last dose Insurance ANTHEM ANTHEM Care Teams Court Attendant Relationship Specialty Start Date End Date Kvng Rodriguez MD [address] [place] [address] PCP - General 04/06/22
== END 2025-02-18 14:52 | disposition home or self-care (01) ==
PROVIDERS: PCP Family Medicine; Visit Provider Nurse Practitioner Family
DX: R29.898 Other symptoms and signs involving the musculoskeletal system (principal); M25.512 Pain in left shoulder
CPT/HCPCS: 73030